=== PATIENT | female | born 1970 | race African-American/Black ===

== ENCOUNTER 2021-11-26 00:29 | Emergency (ER) | payer MEDICAID, OTHER ==
[~2021-11-26] VITALS: Ht 175.3 cm; Wt 83.9 kg
[2021-11-26 00:38] VITALS: BP 136/90
[2021-11-26] MEDS ORDERED: ACETAMINOPHEN 325 MG TAB PO ONE ×2 (09:25→09:30)
[2021-11-26] MEDS ORDERED: NAP500T PO (09:54)
== END 2021-11-26 10:09 | disposition home or self-care (01) ==
LOC: EDBD 00:29 → ER 00:37
DX: S82.401A Unspecified fracture of shaft of right fibula, initial encounter for closed fracture (principal); Y08.89XA Assault by other specified means, initial encounter; Y93.89 Activity, other specified; Y92.89 Other specified places as the place of occurrence of the external cause; Y99.8 Other external cause status
CPT/HCPCS: 29515; 70450; 71045; 72125; 73610